=== PATIENT | male | born 1995 | race African-American/Black ===

== ENCOUNTER 2016-07-21 21:25 | Emergency (ER) | payer MEDICAID ==
[~2016-07-21] VITALS: Ht 190.5 cm; Wt 77.1 kg
[2016-07-21 21:58] VITALS: BP 133/66
[2016-07-22] MEDS: AZITHROMYCIN 250 MG TAB PO ONE (03:07)
[2016-07-22] MEDS: cefTRIAXone SODIUM 250 MG VL IM ONE (03:07)
[2016-07-22] MEDS: LIDOCAINE 1% HCL (LOCAL ANESTH.) INJ 20ML MDV ONE (03:08)
== END 2016-07-22 03:21 | disposition home or self-care (01) ==
LOC: ER 21:42
DX: N39.9 Disorder of urinary system, unspecified (principal); Z20.2 Contact with and (suspected) exposure to infections with a predominantly sexual mode of transmission
CPT/HCPCS: 96372; 99283; J0696; J2001

== ENCOUNTER 2016-10-12 20:37 | Emergency (ER) | payer MEDICAID ==
[~2016-10-12] VITALS: Ht 188 cm; Wt 79.4 kg
[2016-10-12 21:07] VITALS: BP 111/70
[2016-10-12] MEDS ORDERED: ACETAMINOPHEN/CODEINE#3 (300/30mg) TAB PO ONE (23:45)
== END 2016-10-12 23:44 | disposition home or self-care (01) ==
LOC: ER 20:44
DX: J02.9 Acute pharyngitis, unspecified (principal); R51 Headache; Z76.0 Encounter for issue of repeat prescription

== ENCOUNTER → 2017-03-09 | Outpatient (CLI) | payer OTHER | END | disposition home or self-care (01) | LOC: LAB 10:42 | PROVIDERS: ATTEND Nurse Practitioner | DX: Z02.1 Encounter for pre-employment examination (principal) | CPT/HCPCS: 36415; 86706; 86735; 86762; 86765; 86787 ==

== ENCOUNTER 2018-01-17 08:27 | Emergency (ER) | payer OTHER ==
[~2018-01-17] VITALS: Ht 190.5 cm; Wt 86.2 kg
[2018-01-17 08:37] VITALS: BP 127/68
[2018-01-17 10:49] LABS: Alcohol, Urine < 3.0 mg/dL (0-5); Amphetamine Screen, Urine NEGATIVE (NEGATIVE); Barbiturate Scree,Urine NEGATIVE (NEGATIVE); Benzodiazephine Screen, Urine NEGATIVE (NEGATIVE); Cannabinoid Screen, Urine NEGATIVE (NEGATIVE); Cocaine Screen, Urine NEGATIVE (NEGATIVE); Opiate Scree,Urine NEGATIVE (NEGATIVE); Phencyclidine Screen, Urine NEGATIVE (NEGATIVE)
== END 2018-01-17 11:39 | disposition home or self-care (01) ==
LOC: ER 08:27
DX: R51 Headache (principal); V48.5XXA Car driver injured in noncollision transport accident in traffic accident, initial encounter; Y93.89 Activity, other specified; Y99.8 Other external cause status; Y92.488 Other paved roadways as the place of occurrence of the external cause
CPT/HCPCS: 70450; 80307

== ENCOUNTER → 2019-11-30 | Outpatient (CLI) | payer OTHER | END | disposition home or self-care (01) | LOC: LAB 14:03 | PROVIDERS: ATTEND Preventive Medicine Preventive Medicine/Occupational Environmental Medicine | DX: Z02.1 Encounter for pre-employment examination (principal) | CPT/HCPCS: 36415; 86706; 86735; 86762; 86765; 86787 ==

== ENCOUNTER 2020-04-20 21:53 | Emergency (ER) | payer MEDICAID, OTHER ==
[~2020-04-20] VITALS: Ht 190.5 cm; Wt 86.2 kg
[2020-04-20 22:42] LABS: Basophils # (auto) 0.1 10 ^3/uL (0-0.2); Basophils % (auto) 1.1 % (0.0-2.0); Eosinophils # (auto) 0.1 10 ^3/uL (0-0.8); Eosinophils % (auto) 2.1 % (0.0-7.0); Hematocrit 48.2 % (41.0-53.0); Hemoglobin 15.8 g/dL (13.5-17.5); Lymphocytes % (auto) 40.2 % (10.0-50.0); Mean Corpuscular Hemoglobin 28.7 pg (28.0-32.0); Mean Corpuscular Hgb Conc. 32.7 g/dL (32.0-36.0); Mean Corpuscular Volume 87.7 fL (80.0-100.0); Monocytes # (auto) 0.5 10 ^3/uL (0-1.3); Monocytes % (auto) 9.7 % (0.0-12.0); Neutrophils # (auto) 2.3 10 ^3/uL (1.6-8.6); Neutrophils % (auto) 46.9 % (37.0-80.0); Nucleated Red Blood Cells % 0.1 %; Platelet Count (auto) 188 10^3/uL (140-450); Red Cell Distribution Width 13.1 % (11.8-14.3)
[2020-04-20 22:59] LABS: INR 1.06 (0.9-1.15); Partial Thromboplastin Time 26.1 sec (23.0-31.2)
[2020-04-20 23:07] LABS: Potassium 4.1 mmol/L (3.5-5.1)
[2020-04-20 23:08] LABS: Albumin 4.3 g/dL (3.4-5.0); Calcium 8.8 mg/dL (8.5-10.1)
[2020-04-20 23:11] LABS: BUN/Creatinine Ratio 16.8; Bilirubin, Total 0.5 mg/dL (0.2-1.0); Total Protein 7.2 g/dL (6.4-8.2)
[2020-04-21] MEDS ORDERED: cefTRIAXone 1GM/50ML D5W 50 ML IV ONE (04:30)
[2020-04-21 05:00] VITALS: BP 118/76
== END 2020-04-21 05:33 | disposition home or self-care (01) ==
LOC: ER 21:53
DX: R04.2 Hemoptysis (principal); J06.9 Acute upper respiratory infection, unspecified
CPT/HCPCS: 36415; 71046; 80053; 85025; 85610; 85730; 96365; 99284; J0696